=== PATIENT | male | born 1975 | race African-American/Black ===

== ENCOUNTER 2017-05-02 00:32 | Emergency (ER) | payer OTHER ==
[~2017-05-02] VITALS: Ht 177.8 cm; Wt 72.6 kg
[~2017-05-02 00:32] MED LIST: NAPROSYN500 MG PO; PRILOSEC 20 MG20 MG PO; PRILOSEC40 MG PO
[2017-05-02 02:18] VITALS: BP 120/70
== END 2017-05-02 02:20 | disposition home or self-care (01) ==
LOC: ER 00:32
DX: L02.211 Cutaneous abscess of abdominal wall (principal); K21.9 Gastro-esophageal reflux disease without esophagitis

== ENCOUNTER 2017-11-09 13:33 | Emergency (ER) | payer OTHER ==
[~2017-11-09] VITALS: Ht 177.8 cm; Wt 72.6 kg
[2017-11-09] MEDS ORDERED: BACTRIM DS TAB1 EACH PO (14:15)
== END 2017-11-09 15:05 | disposition home or self-care (01) ==
LOC: ER 13:33
DX: L02.511 Cutaneous abscess of right hand (principal); K21.9 Gastro-esophageal reflux disease without esophagitis

== ENCOUNTER 2017-11-12 20:27 | Emergency (ER) | payer OTHER ==
[~2017-11-12] VITALS: Ht 177.8 cm; Wt 72.6 kg
[~2017-11-12 20:27] MED LIST changes: +BACTRIM DS TAB1 EACH PO
[2017-11-12] MEDS ORDERED: VALACYCLOVIR1000 MG PO (21:02)
[2017-11-14 10:27] LABS: HSV PCR SOURCE LESION
[2017-11-14 19:11] LABS: HSV 1 DNA Negative (Negative); HSV 2 DNA Positive (Negative)
== END 2017-11-12 21:09 | disposition home or self-care (01) ==
LOC: ER 20:27
PROVIDERS: Emergency Medicine
DX: S30.861A Insect bite (nonvenomous) of abdominal wall, initial encounter (principal); W57.XXXA Bitten or stung by nonvenomous insect and other nonvenomous arthropods, initial encounter; Y93.89 Activity, other specified; Y92.89 Other specified places as the place of occurrence of the external cause; Y99.8 Other external cause status; K21.9 Gastro-esophageal reflux disease without esophagitis